=== PATIENT | female | born 1965 | race Caucasian/White ===

== ENCOUNTER → 2018-08-13 | Outpatient (CLI) | payer OTHER ==
--- NOTE | 2018-08-16 16:03 | SLEEP ---
DATE OF STUDY: 08/13/2018 HOME SLEEP STUDY. ATTENDING PHYSICIAN: Dr. Kasandra Aguilera. The patient is 53 years old who weighs 320 pounds with a BMI of 62. The patient's [place] score was 18. The patient underwent home sleep study performed by [facility]. The total recording time was 540 minutes. During that time, there were 301 obstructive apneas, no central apneas and 29 mixed apneas and 96 hypopneas. The patient's apnea hypopnea index was 47 per hour. No supine sleep seen. Nocturnal oximetry study revealed an average oxygen saturation of 86%, with the lowest of 52%. 346 minutes were spent in oxygen saturation of less than 90% and 171 minutes with saturation less than 85% and another 16 minutes with saturation less than 80%. Mean heart rate of 95 beats per minute. IMPRESSION: 1. Severe sleep apnea-hypopnea syndrome at an AHI of 47 per hour. 2. Severe nocturnal hypoxia secondary to obstructive sleep apnea. RECOMMENDATIONS: 1. The patient would benefit from in-lab CPAP titration study. 2. Once optimum CPAP pressure is achieved, then follow up in 4-6 weeks to assess compliance with CPAP and to document clinical improvement. 3. Weight loss is strongly advised. 4. Avoid SOFTWARE DEVELOPMENT LEADER depressants. 5. Caution regarding driving until symptoms of sleep apnea resolve with the use of CPAP. MARTHA WOODSON MD DR: TAMMY/gilbert JOB#: [id number] / [id number] [facility] KASANDRA AGUILERA MD
== END | disposition home or self-care (01) ==
LOC: RT 06:09
PROVIDERS: ATTEND Family Medicine
DX: G47.33 Obstructive sleep apnea (adult) (pediatric) (principal); R09.02 Hypoxemia; R53.83 Other fatigue
CPT/HCPCS: G0399

== ENCOUNTER → 2018-08-30 | Outpatient (CLI) | payer OTHER ==
--- NOTE | 2018-09-04 10:50 | SLEEP ---
DATE OF STUDY: 08/30/2018 ATTENDING PHYSICIAN: Kasandra Aguilera MD. The patient is 53 years old who weighs 319 pounds with a BMI of 63. The patient's Elton score was 17. The patient underwent a home sleep study previously and was found to have severe ESME at an AHI of 47 per hour. The patient returned for CPAP titration study. During the night study, the patient spent 417 minutes in bed and slept for 387 minutes with a sleep efficiency of 93%. Sleep latency was 7 minutes with a REM latency of 71 minutes. Overall, sleep architecture showed normal stage 1 and stage 2 sleep, increased N3 sleep and increased REM sleep. EKG monitoring revealed an average heart rate of 82 beats per minute No arrthymias seen. PLMs were not seen. The patient was started on CPAP at a pressure of 5 cm water and titrated up to 20 cm water. At the final pressure, the patient did well. The patient slept for 224 minutes. The patient had supine as well as REM sleep. The patient's AHI was reduced to 1 per hour and oxygen saturation remained above 93%. The patient used a small size full face mask. IMPRESSION: 1. Severe sleep apnea diagnosed by home sleep study. 2. No clinically significant PLMS. RECOMMENDATIONS: 1. CPAP at 20 cm water completely eliminated the patient's sleep apnea, should be used on a nightly basis. 2. Follow up in 4-6 weeks to assess compliance with CPAP and to document clinical improvement. 3. Weight loss is strongly advised. 4. Avoid OFFICE CORRESPONDENT depressants. 5. Caution regarding driving until symptoms of sleep apnea resolve with the use of CPAP. MARTHA WOODSON MD DR: TAMMY/gilbert JOB#: [id number] / [id number] KASANDRA Valdez MD MTDD
== END | disposition home or self-care (01) ==
LOC: SLPLAB 19:51
PROVIDERS: ATTEND Family Medicine
DX: G47.33 Obstructive sleep apnea (adult) (pediatric) (principal); E66.01 Morbid (severe) obesity due to excess calories; Z68.44 Body mass index [BMI] 60.0-69.9, adult
CPT/HCPCS: 95811